=== PATIENT | male | born 1960 | race Hispanic/Latino ===

== ENCOUNTER → 2018-07-30 | Day surgery (SDC) | payer BC ==
[2018-07-27 17:19] LABS: BASOPHILS % 0.5 % (0.0-1.0); EOSINOPHILS # (AUTO) 0.1 (0.0-0.4); EOSINOPHILS % 1.5 % (0.0-6.0); HEMATOCRIT 41.5 % (38.2-49.6); HEMOGLOBIN 14.5 g/dL (14.0-18.0); LYMPHOCYTES # (AUTO) 2.2 (1.0-3.2); LYMPHOCYTES % 29.5 % (18.0-39.1); MEAN CORPUSCULAR HEMOGLOBIN 31.6 pg (28-32); MEAN CORPUSCULAR HGB CONC 34.9 g/dL (31-35); MEAN CORPUSCULAR VOLUME 90.4 fL (81-99); MONOCYTES % 13.2 % (4.4-11.3); NEUTROPHILS # (AUTO) 4.1 (2.1-6.9); PLATELET COUNT 245 x10e3/uL (140-360); RED BLOOD COUNT 4.59 x10e6/uL (4.3-5.7); RED CELL DISTRIBUTION WIDTH 11.9 % (11.7-14.4)
[2018-07-27 17:39] LABS: BLOOD UREA NITROGEN 14 mg/dL (7-26); BUN/CREATININE RATIO 17 (6-25); CARBON DIOXIDE 27 mmol/L (22-29); CHLORIDE 103 mmol/L (98-107); CREATININE, SERUM 0.81 mg/dL (0.72-1.25); EST GLOMERULAR FILTRATION RATE > 60 ML/MIN (60-); GLUCOSE 95 mg/dL (74-118); SODIUM 140 mmol/L (136-145)
--- NOTE | 2018-07-27 19:14 | Diagnostic Imaging Report ---
EXAMINATION: CHEST 2 VIEWS INDICATION: Preop for surgery. ^PRE ADMIT ^[id number] ^1651 COMPARISON: None FINDINGS: PA and lateral views TUBES and LINES: None. LUNGS: Lungs are well inflated. Lungs are clear. There is no evidence of pneumonia or pulmonary edema. PLEURA: No pleural effusion or pneumothorax. HEART AND MEDIASTINUM: The cardiomediastinal silhouette is unremarkable. BONES AND SOFT TISSUES: No acute osseous lesion. Soft tissues are unremarkable. UPPER ABDOMEN: No free air under the diaphragm. IMPRESSION: No acute thoracic abnormality. Signed by: DR. Sanya Martinez MD on 07/27/2018 7:11 PM
[~2018-07-30] MED LIST: BUPIVACAINE 0.25%/EPI 30ML SDV INJ ONE; DEXAMETHASONE SOD PHOS INJ 4 MG/ML VIAL ONE; FENTANYL CITRATE/PF 100MCG/2 ML INJ ONE; GELATIN SPONGE SZ 100 ONE; LIDOCAINE HCL 1% 30ML-PF VIAL ONE; LIDOCAINE HCL 2% 30 ML TUBE ONE; LIDOCAINE HCL 2% LOCAL INJ 5 ML SDV VIAL INJ ONE; MEGA MULTI FOR1 EAC1; MIDAZOLAM HCL 2 MG/2 ML VIAL ONE; ONDANSETRON HCL INJ 2 MG/ML VIAL ONE; PROPOFOL IV EMULSION 10 MG/ML 20 ML VIAL ONE; SEVOFLURANE INHAL SOLN 250 ML PEN BTL ONE
--- OUTSIDE RECORDS SUMMARY | 2018-07-30 08:50 | XMS REPORT ---
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 Allergies, Adverse Reactions, Alerts This patient has no known allergies or adverse reactions. Medications This patient has no known medications. Results Test Description Test Time Test Comments Text Results Atomic Results Result Comments CHEST 2 VIEWS 2018-07-27 19:10:00 [place] [address] Patient Name: MAXINE PEÑA MR #: [id number] : 1960 Age/Sex: 58/M Req #: [id number] Adm Physician: Ordered by: LINDSAY NGUYEN MD Report #: [id number] Location: OR Room/Bed: Procedure: [id number] DX/CHEST 2 VIEWS Exam Date: 07/27/18 Exam Time: 1650 REPORT STATUS: Signed EXAMINATION: CHEST 2 VIEWS INDICATION: Preop for surgery. PRE ADMIT [id number] COMPARISON: None FINDINGS: PA and lateral views TUBES and LINES: None. LUNGS: Lungs are well inflated. Lungs are clear. There is no evidence of pneumonia or pulmonary edema. PLEURA: No pleural effusion or pneumothorax. HEART AND MEDIASTINUM: The cardiomediastinal silhouette is unremarkable. BONES AND SOFT TISSUES: No acute osseous lesion. Soft tissues are unremarkable. UPPER ABDOMEN: No free air under the diaphragm. IMPRESSION: No acute thoracic abnormality. Signed by: DR. Sanya Martinez MD on 07/27/2018 7:11 PM Dictated By: SANYA MARTINEZ MD 10 Transcribed By: DYLON on 07/27/181910 COPY TO: LINDSAY NGUYEN MD
[2018-07-30 13:15] VITALS: BP 103/74
--- NOTE | 2018-07-30 15:56 | Operative Report ---
DATE OF PROCEDURE: July 30, 2018 PREOPERATIVE DIAGNOSIS: Posterior anorectal fissure. POSTOPERATIVE DIAGNOSIS: Posterior anorectal fissure. OPERATION PERFORMED: Left lateral partial superficial internal sphincterotomy and fissurectomy. ANESTHESIA: General. COMPLICATIONS: None. ESTIMATED BLOOD LOSS: Minimal. DESCRIPTION OF PROCEDURE: With the patient lying in bed in the lithotomy position under good general anesthesia, the perineum was prepped with Betadine solution and draped in the usual manner. A complete anorectal block was then performed 0.25% Marcaine and 1% lidocaine mixed in equal parts. An incision was made at the 3 o'clock position and the superficial fibers of the internal sphincter were then identified and a partial sphincterotomy was performed and a reasonable release was obtained. Hemostasis was ascertained. The wound was then closed with interrupted sutures of 3-0 chromic. All of the excess fibrotic tissue around the fissure was then resected and debrided back to normal tissue. Hemostasis was then ascertained. A Gelfoam pack impregnated with Xylocaine was placed. A dressing was applied. The sponge, lap and needle count was correct. Patient tolerated the procedure well and returned to the recovery room in stable condition. Job#: [id number]
== END | disposition home or self-care (01) ==
LOC: OR 08:48
PROVIDERS: ATTEND Surgery
DX: K60.2 Anal fissure, unspecified (principal); Z01.810 Encounter for preprocedural cardiovascular examination; Z01.812 Encounter for preprocedural laboratory examination; Z01.818 Encounter for other preprocedural examination
CPT/HCPCS: 36415; 46200; 71046; 80048; 85025; 93005; J1100; J2001 ×2; J2250; J2405; J2704